=== PATIENT | female | born 1990 | race Caucasian/White ===

== ENCOUNTER 2019-01-08 18:23 | Emergency (ER) | payer SELFPAY ==
[2019-01-08 19:46] VITALS: TEMP 97.7; O2SAT 99
--- NOTE | 2019-01-08 20:32 | CT ---
EXAM: CT Head Without Intravenous Contrast CLINICAL HISTORY: 28 years old and is Female; Rt eye dilated, headache, sent by eye DR TECHNIQUE: Axial computed tomography images of the head/brain without intravenous contrast. Sagittal and coronal reformatted images were created and reviewed. This CT exam was performed using one or more of the following dose reduction techniques: automated exposure control, adjustment of the mA and/or kV according to patient size, and/or use of iterative reconstruction technique. COMPARISON: No relevant prior studies available. FINDINGS: Limitations: None. Brain: Unremarkable. No hemorrhage. No significant white matter disease. No edema. Ventricles: Unremarkable. No ventriculomegaly. Bones/joints: Unremarkable. No acute fracture. Soft tissues: Unremarkable. Sinuses: Mild chronic left maxillary sinus thickening noted. Mastoid air cells: Unremarkable as visualized. No mastoid effusion. Orbits: Orbital contents appear normal. IMPRESSION: No acute findings. Electronically signed by: Cecilia De La Cruz MD 01/08/2019 8:31 PM CDT
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
[2019-01-08 21:47] VITALS: BP 112/78
== END 2019-01-08 21:47 | disposition home or self-care (01) ==
LOC: ER 18:23
DX: H57.02 Anisocoria (principal); R51 Headache; H53.141 Visual discomfort, right eye